=== PATIENT | male | born 1940 | race Caucasian/White ===

== ENCOUNTER 2022-07-25 16:30 | Inpatient (IN) | payer MEDICARE, SELFPAY ==
[2022-07-25] VITALS (7 sets, daily range): BP systolic 112–210; BP diastolic 79–136; PULSE 123–144; RESP 17–26; TEMP 36.3–36.6; O2SAT 90–97; BMI 16.8
--- NOTE | 2022-07-25 16:45 | PC.NURSE ---
Pt arrived at 1605. Audible inspiratory and expiratory wheezes with work of breathing noted. Vitals done hypertension and tachycardia noted. Slight mottling noted on knees. Bloody drainage noted in Depends. IV noted in right forearm
--- NOTE | 2022-07-25 16:51 | P.HP_ITS ---
Providers/Chief Complaint Admitting Physician: Jesus Romeo MD Chief Complaint: Urology consult History of Present Illness Gorge Brown is a 82 year old male who carries history of end-stage COPD, active smoker, intermittent use of 3 L of oxygen at home, noncompliant with oxygen, he still drives, and transferred today to our hospital from [facility] when they noticed urinary retention, 5 times were made to put a Terry catheter which were unsuccessful hence Dr. Almodovar was called who accepted the transfer and asked hospitalist service to admit him. At the time of admission I reviewed his records his ABG was unremarkable, he was on 3 L of oxygen, he was actively wheezing complaining of pain, he was hypertensive tachycardic bladder scan showed more than [address] Bishop was at the bedside We will give him opioids before cystoscopy Patient had a CT scan at the other hospital which revealed hydro nephrosis related to bladder outlet obstruction, L4 compression fracture, COPD, pleural effusion, I called his daughter as well who was very concerned that her father still drives without oxygen I encouraged her to call DMV and report him to confiscate his license Patient is stating that in case of cardiac arrest he does not want chest compressions or intubation Nurse was in the room Daughter wants residential placement and palliative care, patient lives in an apartment Review of Systems Const: Reports: body aches Eyes: Denies: change in vision ENMT: Denies: throat pain Card: Denies: chest pain Resp: Reports: dyspnea GI: Reports: abdominal pain and nausea : Reports: flank pain and difficulty urinating Musc: Denies: neck pain Skin/Breast: Reports: rash and changes in skin color Neuro: Denies: headache(s) Psych: Reports: anxiety Endo: Denies: polyuria Ron/Lymph: Reports: easy bruising All/Imm: Denies: urticaria PFSH Acute PFSH: Medical History BPH (benign prostatic hyperplasia) DNR (do not resuscitate) End stage COPD Hypertension Non-compliant behavior Surgical History No pertinent past surgical history Family History (Updated 07/25/22 @ 17:00 by Jesus Romeo MD) Denies family history of CAD (coronary artery disease) Vitals/I&O/Wt Last Vital Signs O2 Del Method 07/25/22 16:44 Weight last 48 hrs Weight 48.67 kg Physical Exam Narrative: Cachectic malnourished elderly male Currently on 3 L Active wheezing Skin mottling knees No signs of vascular compromise of lower extremities Patient is in distress because of urinary tension Abdomen palpation is painful Active wheezing Right eye mild ptosis Extremely weak lethargic and fatigued EOMI, PERRLA No active focal deficits A&P Assessment and plan (1) COPD exacerbation: (2) Cachectic: (3) Nicotine dependence: (4) Hydronephrosis: (5) Compression fracture of L4 vertebra: (6) Constipation: Plan End-stage COPD Cachectic, malnourished, noncompliant with oxygen No acute Active wheezing Start him on ceftriaxone DuoNeb treatment ABG, also facility was reviewed which is normal I will put him on BiPAP overnight to decrease work of breathing Start IV steroids Urinary retention Bladder outlet obstruction BPH history Dr. Almodovar consulted 5 attempts of catheter placement unsuccessful at outside facility Check UA Cachectic, malnourished End-stage COPD Patient might be a good candidate for hospice/palliative care Daughter is in agreement DNR/DNI Start mechanical soft diet DVT prophylaxis contraindicated because of hematuria noted after 5 Terry catheter placement attempts Active smoker Constipation with L4 fracture Will get PT evaluation He will need residential placement Attestations Medical Necessity Statement*: Anticipating discharge to residential, anticipating discharge within 48 hours Time Spent in Patient Care: 40 Coding Level of Care Code Acute Senior Business Architect for [facility] Fwd Diagnoses COPD exacerbation J44.1 Cachectic R64 Nicotine dependence F17.200 Hydronephrosis N13.30 Compression fracture of L4 vertebra S32.040A Constipation K59.00
--- NOTE | 2022-07-25 17:30 | PM.CONSULT ---
Providers/Reason For Consult Consulting Physician/Specialty*: Urology/Almodovar Reason for Consult*: Urinary retention, inability to place catheter, urethral bleeding Requesting Physician: Dr. Romeo Attending Physician: Jesus Romeo MD Primary Care Provider: Dr. Sanabria History of Present Illness History of Present Illness Gorge Brown is a 82 year old male who I evaluated for the first time today at the request of the hospitalist service after the patient was direct admitted from [facility]. He had been hospitalized apparently for an exacerbation of COPD. His performance status is very low at baseline. While hospitalized for COPD he was discovered to have urinary retention and multiple attempts at passing a catheter via staff were unsuccessful. CT scan was performed that showed a very distended bladder, enlarged prostate, and no obvious traumatic injuries or periurethral fluid collections etc. I was consulted to evaluate and treat related to urinary retention. Patient states that he has had a difficult time with voiding for a long time. He could not really give a timeframe. He has had a Terry catheter in the past when he had a back fracture from a fall. He was not aware that it was difficult. He did report that attempts at passing the catheter were uncomfortable at [facility]. Has had some bleeding per urethra since those attempts. Physical exam revealed no significant bruising. He did have some urethral bleeding but it was not brisk. Perineum was normal. Scrotum was otherwise normal. Recommended cystoscopy to evaluate the urethra and hopefully assist with catheter placement. PROCEDURE BEDSIDE FLEXIBLE CYSTOSCOPY WITH DIFFICULT CATHETER PLACEMENT. Patient was prepped and draped in usual sterile fashion. 2% lidocaine jelly was instilled into the urethra for several minutes. The flexible scope was then advanced into the urethra. There was a large amount of blood in the urethra tract into the very proximal bulbar urethra. There appeared to be although was not 100% clear of false passage directed posteriorly. The scope was aimed to the anterior urethral wall and fluffed advanced proximally. This allowed manipulation beyond the false passage and the scope was advanced into the bladder through the prostate. Bladder was distended. There is not a lot of blood clot in the bladder. A flexible tip guidewire was then advanced through the scope into the bladder and curled into the bladder. The scope was removed and a 16 Telugu chefornak tip catheter was then advanced over the guidewire into the bladder with good function. 10 cc of saline placed in the balloon and the catheter was placed to dependent drainage. He tolerated procedure well without complications. He was turned back over to nursing staff. Final volume of drainage pending. Recommendations: Maintain Terry catheter for now. I expect that if he recovers quickly he should go home with a catheter in place to allow for adequate healing and then repeat cystoscopy in clinic to confirm adequate healing before catheter removed permanently. Review of Systems Const: Reports: change in weight, fatigue and malaise Eyes: Reports: blurry vision and other (Chronic decreased vision.) ENMT: Denies: hoarseness Card: Denies: chest pain or palpitations Resp: Reports: dyspnea and wheezing GI: Reports: abdominal pain : Reports: difficulty urinating, hematuria and genital pain Musc: Reports: limited range of motion; Denies: joint redness Skin/Breast: Denies: rash Neuro: Reports: difficulty walking; Denies: confusion or behavioral changes Psych: Reports: anxiety and depression Endo: Reports: tired all the time Ron/Lymph: Denies: easy bleeding or enlarged lymph nodes All/Imm: Denies: urticaria Medications/Allergies Allergies Allergy/AdvReac Type Severity Reaction Status Date / Time aspirin AdvReac Severe ADR-Gastrointestinal Verified 07/25/22 17:16 Upset PFSH Acute PFSH: Medical History BPH (benign prostatic hyperplasia) DNR (do not resuscitate) End stage COPD Hypertension Non-compliant behavior Surgical History No pertinent past surgical history Family History (Updated 07/25/22 @ 17:00 by Jesus Romeo MD) Denies family history of CAD (coronary artery disease) Vitals/I&O/Wt Last Vital Signs Temp 97.4 F L 07/25/22 16:56 Pulse 123 H 07/25/22 16:56 Resp 20 H 07/25/22 16:56 BP 210/136 07/25/22 16:56 Pulse Ox 97 07/25/22 16:56 O2 Del Method 07/25/22 16:56 Weight last 48 hrs Weight 107 lb 4.8 oz Physical Exam Const: COMMON NORMALS: alert; apparent distress and negative for well nourished (Cachectic) HENMT: COMMON NORMALS: normocephalic and atraumatic HEAD & SCALP: normocephalic and atraumatic Eye: OTHER: Some matting material Neck/C-Spine: OTHER: Good range of motion Lymph: OTHER: No groin lymphadenopathy Chest: OTHER: Normal movements Resp: OTHER: Audible wheezing. No laboring. GI: OTHER: Rectal exam not performed Abdomen is tense in the suprapubic area consistent with bladder distention. No guarding. No other masses. : OTHER: Circumcised phallus: Some mild bloody discharge from the urethra. Scrotum is grossly normal. No bruising. Testicles descended. Normal perineum. Back/Pelvis: OTHER: No CVA tenderness Extremity: NARRATIVE EXTREMITY EXAM: No severe edema Neuro: SENSORIUM/ORIENTATION: Yes alert Psych: COMMON NORMALS: cooperative; negative for speech normal SPEECH: No normal speech OTHER: Depressed Skin: COMMON NORMALS: no jaundice A&P Assessment and plan (1) Acute urinary retention: Estimated [address] scan but I think it will be less final (2) BPH loc w urin obs/LUTS: Reports chronic history of voiding dysfunction decreased force of stream urgency small void (3) Urethral false passage: Secondary to catheter attempt. Able to manipulate beyond the false passage in order to advance into the bladder and then passed a wire followed by catheter placement over the guidewire. Plan 1. Maintain Terry catheter for healing Coding Level of Care Code Acute Reordering Clerk for [facility] Fwd Diagnoses Acute urinary retention R33.8 BPH loc w urin obs/LUTS N40.1 Urethral false passage N36.5
--- NOTE | 2022-07-25 17:40 | PC.NURSE ---
Dr Almodovar here. Insertio of coude catheter with scope used
[2022-07-25] MEDS: lactulose oral liq 20 gm/30 mL UDC PO (19:01)
[2022-07-25] MEDS: amlodipine 10 mg Tablet PO (19:01)
[2022-07-25] MEDS: lidocaine 2% Urojet 20 mL TOPICAL (19:02)
--- NOTE | 2022-07-25 20:10 | PC.NURSE ---
Bedside report completed with JULIA Denton at this time. Shift Note Pt more alert and less lethargic now. HIs color is pink and the mottling on knees gone. Pt is cracking jokes th staff and daughter. He stated he does not have the urge to urinate anymore. He had 675ml of pink tinges urien output, sample sent to lab for UA. RIght forearm IV flushes easily. Pt still has audible wheezing mostly expiratory at this time. Daughter Sisi at bedside. Frequent safety and comfort rounds continue. Orders and/or nursing care completed as indicated. Patient monitored for response to intervention and treatment(s). Education provided includes amlodipine, Lactulose, methylprednisone, perez, stopping smoking and paln of care. Patient and/or loss control representative verbalized understanding and relief with plan of care and medications discussed. . Will continue to monitor. Pt stated he stakes Force Facture an oTC med for his prostrate.
[2022-07-25 20:20] LABS: Glucose Urine UA 1+ (Normal); Protein Urine 3+ (Negative); Urine Appearance Cloudy (CLEAR); Urine Color Red (Yellow); pH Urine 6 (5-7)
[2022-07-25 20:21] LABS: Add Urine Microscopic? YES; Bilirubin Urine Neg (Negative); Blood Urine 3+ (Negative); Ketones Urine 1+ (Negative); Leukocyte Esterase Urine 1+ (Negative); Nitrate Urine Negative (Negative); RBC Urine TOO NUMEROUS TO CNT /hpf (0-2); Urobilinogen Urine Neg (Negative)
[2022-07-25 20:22] LABS: Add Urine Culture? Yes; Bacteria Urine TRACE /hpf; Mucus Urine TRACE /hpf; Squamous Epithelial Cell Urine 0-4 /hpf (0-5)
[2022-07-25 20:45] LABS: Vitamin B12 728 pg/mL (232-1245)
[2022-07-25] MEDS: ipratropium-albuterol 3 mL Neb INHALATION (23:56)
[2022-07-26] VITALS (13 sets, daily range): BP systolic 116–167; BP diastolic 68–102; PULSE 95–120; RESP 16–22; TEMP 36.4–36.6; O2SAT 92–99
[2022-07-26] MEDS: ipratropium-albuterol 3 mL Neb INHALATION ×5 (03:00→20:01)
[2022-07-26 04:49] LABS: Basophils % 0.1 %; Hematocrit 38.4 % (42.0-52.0); Lymphocytes % 9.3 %; Mean Corpuscular HGB Conc 33.9 g/dL (30.0-36.0); Mean Corpuscular Volume 85.7 fl (80-94); Mean Platelet Volume 10.3 fL (7.4-10.4); Monocytes # 0.8 10^3/uL (0.2-0.9); Monocytes % 7.5 %; Neutrophils # 8.94 10^3/uL (1.8-7.7); Neutrophils % 82.5 %; Nucleated Red Blood Cells % 0 %; Platelet Count 249 10^3/cmm (130-400); Red Blood Count 4.48 10^6/uL (4.1-5.3); Red Cell Distribution Width 14.2 % (12.1-15.1); White Blood Count 10.8 10^3/uL (4.0-10.0)
[2022-07-26 05:20] LABS: Anion Gap 13.4 (5-19); Blood Urea Nitrogen 25 mg/dL (8-23); Calcium 8.5 mg/dL (8.5-10.5); Carbon Dioxide 27 mmol/L (22-29); Chloride 100 mmol/L (98-107); Glucose 145 mg/dL (65-115); Magnesium 2.1 mg/dL (1.7-2.3); Osmolality Calculated 289 mOsm/kg (285-295); Phosphorus 3.1 mg/dL (2.5-4.5); Potassium 4.4 mmol/L (3.5-5.1); Sodium 136 mmol/L (136-145)
[2022-07-26] MEDS: lactulose oral liq 20 gm/30 mL UDC PO (06:28)
[2022-07-26] MEDS: amlodipine 10 mg Tablet PO (08:55)
[2022-07-26] MEDS: cefTRIAXone 1,000 MG in sodium chloride 0.9% (plus) 50 ML 100 MG IV (08:55)
[2022-07-26] MEDS: lisinopril 10 mg Tablet PO (08:55)
[2022-07-26] MEDS: sennosides-docusate Tablet 1 TAB PO (08:55)
[2022-07-26] MEDS: lidocaine 5% Patch 1 PATCH TOPICAL ×2 (08:56→20:29)
--- NOTE | 2022-07-26 09:49 | PM.PN ---
Subjective Subjective: The catheter was placed by Dr. Almodovar Low urine output We will start him on normal saline PT evaluation has been requested Patient might opt for care home with palliative care for a few weeks, family is in agreement Daughter is at the bedside Patient is determined and wants to go home however he is not physically fit to return home as she lives alone, I did tell him that he cannot drive with his condition especially when he is not using oxygen on daily basis Vitals/I&O/Wt Last Vital Signs Temp 97.6 F 07/26/22 04:00 Pulse 111 H 07/26/22 09:06 Resp 18 07/26/22 08:58 BP 116/72 07/26/22 04:00 Pulse Ox 94 07/26/22 08:58 O2 Del Method 07/26/22 08:58 O2 Flow Rate 3 07/26/22 08:58 07/25/22 07/26/22 07/26/22 22:59 06:59 14:59 Intake Total 120 / 120 Output Total 675 / 675 275 / 950 Balance -555 / -555 -275 / -830 Weight last 48 hrs Weight 48.67 kg Physical Exam Narrative: Awake and alert Pursed of breathing Currently on 3 L Bilateral breath sound wheezing has improved as compared to yesterday Abdomen soft Terry cath draining concentrated urine Lower extremity no edema Awake and alert Able to answer my questions Urinary Catheter Management: Coude: Cath Placed During This Visit: yes Reason for Continuing Indwelling Catheter: Acute Urinary Retention or Obstruction Urinary Catheter Date of Insertion: 07/25/22 Urinary Catheter Time of Insertion: 17:40 Data : 07/26/22 04:34 07/26/22 04:34 A&P Assessment and plan (1) COPD exacerbation: (2) Cachectic: (3) Nicotine dependence: (4) Hydronephrosis: (5) Constipation: (6) Compression fracture of L4 vertebra: (7) Urethral false passage: (8) BPH loc w urin obs/LUTS: (9) Acute urinary retention: Plan Acute COPD exacerbation Wheezing has improved to some extent Continue IV steroids Continue DuoNeb treatment Nicotine patch today We have recommended physical therapy and care home placement and palliative care Family is in agreement Continue ceftriaxone Hypertensive urgency resolved after Terry catheter was placed Continue antihypertensive regimen L4 compression fracture pain well managed for now Constipation: Patient is stating that he has not used bathroom for his bowel movement yet but he thinks it will happen today, he is not eating very well I will put him on normal saline Cachectic, malnourished Will request dietary consult Moderate protein calorie malnourishment DNR/DNI He will need palliative consult Urine tension history of BPH False passage secondary to multiple times at outside facility Terry catheter placed by Dr. Almodovar Most likely he will be discharged with the Terry catheter and will see Dr. Almodovar outpatient Attestations Medical Necessity Statement*: Continue medical management Time Spent in Patient Care: 30 Coding Level of Care Code Acute Dry Cleaner Hand for g Fwd Diagnoses COPD exacerbation J44.1 Cachectic R64 Nicotine dependence F17.200 Hydronephrosis N13.30 Constipation K59.00 Compression fracture of L4 vertebra S32.040A Urethral false passage N36.5 BPH loc w urin obs/LUTS N40.1 Acute urinary retention R33.8
--- NOTE | 2022-07-26 10:41 | PC.CHAP ---
Pastoral Care Encounter/Spiritual Assessment Type of Contact [] Declined bioinformatics research technician visit [] Patient/Family/Request visit [] Outpatient visit [] Follow-up visit [] Physician referral [] Code/Alert [x] Routine visit [] Staff referral [] Actively dying [] Patient sleeping [] Family support [] [] Out of room [] Palliative care [] [x] Receiving care in room [] Pre-surgical visit [] Trauma [] Long length of stay [] ICU visit [] Other: Relational/Emotional Strength [] Patient feels connected with others/family/visitors/staff [] Distress [] Loneliness/isolation [] Abandonment Spirituality of Patient [] Person of Cheryl [] Attends Bahai of their Cheryl [] Believes in Prayer [] Reads Bible or Sikh materials [] There are Spiritual issues to be addressed Shafting Worker Interventions [] Prayer [] Active listening [] Non-anxious presence [] Spiritual/emotional support [] Crisis/trauma care [] Spiritual counseling [] Bereavement support [] Provided bereavement packet [] Provided Bible/devotional materials [] Provided toy/stuffed animal, coloring book to patient or family member [] Provided Communion [] Anointing/[place] [] Salvation [] Completed spiritual assessment [] Other: Impact on Illness or Injury [] Angry [] Fearful [] Anxious [] Often cries [] Exhaustion [] Unable to work [] Unable to attend spiritism [] Unable to walk/stand [] Unable to read [] Unable to drive [] Unable to eat/drink [] Unable to sleep [] Unable to be with family [] Patient intubated [] Other: Summary Time spent with patient
[2022-07-26] MEDS: nicotine 21 mg Patch 1 PATCH TRANSDERMA (11:03)
[2022-07-26] MEDS: sodium chloride 0.9% 1,000 ML 75 ML IV (11:06)
[2022-07-27] VITALS (13 sets, daily range): BP systolic 129–153; BP diastolic 73–83; PULSE 71–118; RESP 16–20; TEMP 36.4–36.7; O2SAT 93–99
[2022-07-27] MEDS: ipratropium-albuterol 3 mL Neb INHALATION ×5 (00:13→15:05)
[2022-07-27] MEDS: sodium chloride 0.9% 1,000 ML 75 ML IV (01:16)
[2022-07-27 03:42] LABS: Lymphocytes # 0.9 10^3/uL (0.8-4.8); Lymphocytes % 11.1 %; Mean Corpuscular HGB Conc 32.4 g/dL (30.0-36.0); Mean Corpuscular Hemoglobin 28.8 pg (28.0-34.0); Mean Corpuscular Volume 88.9 fl (80-94); Mean Platelet Volume 10.1 fL (7.4-10.4); Monocytes # 0.5 10^3/uL (0.2-0.9); Monocytes % 6.5 %; Neutrophils % 81.9 %; Nucleated Red Blood Cells % 0 %; Platelet Count 229 10^3/cmm (130-400); Red Blood Count 4.16 10^6/uL (4.1-5.3); Red Cell Distribution Width 14.2 % (12.1-15.1); White Blood Count 8.2 10^3/uL (4.0-10.0)
[2022-07-27 04:08] LABS: Anion Gap 11.3 (5-19); Blood Urea Nitrogen 34 mg/dL (8-23); Calcium 8.2 mg/dL (8.5-10.5); Carbon Dioxide 29 mmol/L (22-29); Chloride 103 mmol/L (98-107); Glucose 150 mg/dL (65-115); Osmolality Calculated 296 mOsm/kg (285-295); Potassium 5.3 mmol/L (3.5-5.1); Sodium 138 mmol/L (136-145)
[2022-07-27] MEDS: amlodipine 10 mg Tablet PO (08:43)
[2022-07-27] MEDS: lisinopril 10 mg Tablet PO (08:43)
[2022-07-27] MEDS: nicotine 21 mg Patch 1 PATCH TRANSDERMA (08:43)
[2022-07-27] MEDS: cefTRIAXone 1,000 MG in sodium chloride 0.9% (plus) 50 ML 30 MG IV (08:44)
--- NOTE | 2022-07-27 09:28 | P.PN_ITS ---
Subjective Subjective: Patient wants to go to [facility] for rehab Currently on 3 L nasal cannula Patient is stating that because of his bedside alarm beeping he could not sleep very well Number of bowel movements to Adequate urine output Discontinue IV fluids Vitals/I&O/Wt Last Vital Signs Temp 97.9 F 07/27/22 07:32 Pulse 118 H 07/27/22 07:53 Resp 18 07/27/22 07:53 BP 150/83 07/27/22 07:32 Pulse Ox 94 07/27/22 07:53 O2 Del Method 07/27/22 07:53 O2 Flow Rate 3 07/27/22 08:00 07/26/22 07/27/22 07/27/22 22:59 06:59 14:59 Intake Total 300 / 586 1000 / 1586 Output Total 450 / 450 600 / 1050 Balance -150 / 136 400 / 536 Weight last 48 hrs Weight 48.67 kg Physical Exam Narrative: Cachectic malnourished elderly male Currently on 3 L Wheezing improved Conversational dyspnea present Pursed lip breathing present Cachectic malnourished Abdomen soft Eating breakfast Nonfocal neuro exam Urinary Catheter Management: Coude: Cath Placed During This Visit: yes Reason for Continuing Indwelling Catheter: Acute Urinary Retention or Obstruction Urinary Catheter Date of Insertion: 07/25/22 Urinary Catheter Time of Insertion: 17:40 Data : 07/27/22 03:10 07/27/22 03:10 A&P Assessment and plan (1) COPD exacerbation: (2) Cachectic: (3) Nicotine dependence: (4) Hydronephrosis: (5) Constipation: (6) Compression fracture of L4 vertebra: (7) Urethral false passage: (8) BPH loc w urin obs/LUTS: (9) Acute urinary retention: Plan Acute exacerbation of underlying end-stage COPD Active smoker Currently on 3 L I have recommended palliative care patient is DNR/DNI Pursed lip breathing Cachectic and malnourished He is agreeable to go to residential for short-term In case he changes his mind and want to pursue palliative care at a residential he can do so, family is aware Daughter updated BPH, urine retention, adequate urine output Hematuria improved Discontinue IV fluids, discontinue ceftriaxone Because of end-stage COPD and urine retention I have kept him on antibiotics however there is no source of infection I am treating him empirically with levofloxacin for now DNR/DNI Awaiting placement to [place] for urethral passage and Terry catheter placement he will follow-up with Dr. Almodovar L4 compression fracture management with opioids Attestations Medical Necessity Statement*: Continue medical management Time Spent in Patient Care: 20 Coding Level of Care Code Acute Field Crop I Farmworker for [employer] Fwd Diagnoses COPD exacerbation J44.1 Cachectic R64 Nicotine dependence F17.200 Hydronephrosis N13.30 Constipation K59.00 Compression fracture of L4 vertebra S32.040A Urethral false passage N36.5 BPH loc w urin obs/LUTS N40.1 Acute urinary retention R33.8
--- NOTE | 2022-07-27 09:32 | ECG_ITS ---
[facility] Test Date: 2022-07-27 Pat Name: Gorge Brown Department: Room: 253 Gender: Male Certified Forklift Operator: : [id number] Requested By: Jesus Romeo Order Number: [id number] Bernadette MD: Navid Molina M.D. Measurements Intervals [place] Rate: 105 P: 73 [place]: 107 QRS: 82 QRSD: 126 T: 60 QT: 345 QTc: 457 Interpretive Statements SINUS TACHYCARDIA WITH SHORT [place] INTERVAL POSSIBLE LEFT ATRIAL ENLARGEMENT [-0.1mV P-WAVE IN V1/V2] POSSIBLE RIGHT VENTRICULAR CONDUCTION DELAY [RSR (QR) IN V1/V2] MODERATE ST DEPRESSION [0.05+ mV ST DEPRESSION] No previous ECG available for comparison Electronically Signed On 07-28-2022 0:24:12 CDT by Navid Molina M.D. [email or web address]
[2022-07-27 10:29] LABS: D Dimer 3.18 ug/mIFEU (0-0.59)
--- NOTE | 2022-07-27 11:06 | PC.CHAP ---
Pastoral Care Encounter/Spiritual Assessment Type of Contact [] Declined education and development manager visit [] Patient/Family/Request visit [] Outpatient visit [] Follow-up visit [] Physician referral [] Code/Alert [x] Routine visit [] Staff referral [] Actively dying [] Patient sleeping [] Family support [] [] Out of room [] Palliative care [] [] Receiving care in room [] Pre-surgical visit [] Trauma [] Long length of stay [] ICU visit [] Other: Relational/Emotional Strength [x] Patient feels connected with others/family/visitors/staff [] Distress [] Loneliness/isolation [] Abandonment Spirituality of Patient [x] Person of Cheryl [] Attends Mormonism of their Cheryl [x] Believes in Prayer [] Reads Bible or Buddhism materials [] There are Spiritual issues to be addressed Blood Or Blood Bank Technician Interventions [x] Prayer [x] Active listening [x] Non-anxious presence [] Spiritual/emotional support [] Crisis/trauma care [] Spiritual counseling [] Bereavement support [] Provided bereavement packet [] Provided Bible/devotional materials [] Provided toy/stuffed animal, coloring book to patient or family member [] Provided Communion [] Anointing/[place] [] Salvation [x] Completed spiritual assessment [] Other: Impact on Illness or Injury [] Angry [] Fearful [] Anxious [] Often cries [] Exhaustion [] Unable to work [] Unable to attend episcopalian [] Unable to walk/stand [] Unable to read [] Unable to drive [] Unable to eat/drink [] Unable to sleep [] Unable to be with family [] Patient intubated [] Other: Summary patient doing better today Time spent with patient 10 min
--- NOTE | 2022-07-27 12:07 | P.DS_ITS ---
Discharge Providers Date of Admission: 07/26/22 18:31 Date of Discharge: July 27, 2022 Attending Provider at Admission: Jesus Romeo MD Attending Provider at Discharge: Jesus Romeo MD Diagnoses at Discharge Discharge Diagnosis (1) COPD exacerbation: Status: Acute (2) Cachectic: Status: Acute (3) Nicotine dependence: Status: Acute (4) Hydronephrosis: Status: Acute (5) Constipation: Status: Acute (6) Compression fracture of L4 vertebra: Status: Acute (7) Urethral false passage: Status: Acute (8) BPH loc w urin obs/LUTS: Status: Acute (9) Acute urinary retention: Status: Acute Reason for Visit Reason for Visit: Urology consult Hospital Course Hospital Course 82-year-old male who was transferred from [facility] for his inability to void urine spontaneously, nursing staff could not place a Terry catheter after 5 attempts hence he was transferred to our facility after Dr. Almodovar excepted him, patient has end-stage COPD, he is an active smoker, noncompliant, lives alone, pursed lip breathing Cut short of breath easily on conversation and any mild exertion, Dr. Almodovar was able to put a Terry catheter over the guidewire with cystoscopy, hematuria resolved, no sign of UTI, he remained afebrile, he was given empirical coverage with antibiotics however no signs of infection identified. Patient was given option to go to correction on palliative care or go home on hospice he has opted for home with hospice He has end-stage COPD, losing weight, cachectic and malnourished, active smoker, not an ideal candidate for pulmonary rehab He also has severe constipation, compression fracture I will give him opioids, bowel regimen and albuterol Home health with hospice services Physical Exam Narrative: Cachectic malnourished elderly male Currently on 3 L Wheezing improved Conversational dyspnea present Pursed lip breathing present Cachectic malnourished Abdomen soft Eating breakfast Nonfocal neuro exam Urinary Catheter Management: Coude: Cath Placed During This Visit: yes Reason for Continuing Indwelling Catheter: Acute Urinary Retention or Obstruction Urinary Catheter Date of Insertion: 07/25/22 Urinary Catheter Time of Insertion: 17:40 Discharge Data Studies Completed and Pending Laboratory Results WBC 8.2 10^3/uL (4.0-10.0) 07/27/22 03:10 RBC 4.16 10^6/uL (4.1-5.3) 07/27/22 03:10 Hgb 12.0 g/dL (11.7-16.6) 07/27/22 03:10 Hct 37.0 % (42.0-52.0) L 07/27/22 03:10 MCV 88.9 fl (80-94) 07/27/22 03:10 MCH 28.8 pg (28.0-34.0) 07/27/22 03:10 MCHC 32.4 g/dL (30.0-36.0) 07/27/22 03:10 RDW 14.2 % (12.1-15.1) 07/27/22 03:10 Plt Count 229 10^3/cmm (130-400) 07/27/22 03:10 MPV 10.1 fL (7.4-10.4) 07/27/22 03:10 Neut % (Auto) 81.9 % 07/27/22 03:10 Lymph % (Auto) 11.1 % 07/27/22 03:10 Sac % (Auto) 6.5 % 07/27/22 03:10 Eos % (Auto) 0.0 % 07/27/22 03:10 Baso % (Auto) 0.0 % 07/27/22 03:10 Neut # (Auto) 6.70 10^3/uL (1.8-7.7) 07/27/22 03:10 Lymph # (Auto) 0.9 10^3/uL (0.8-4.8) 07/27/22 03:10 Sac # (Auto) 0.5 10^3/uL (0.2-0.9) 07/27/22 03:10 Eos # (Auto) 0.0 10^3/uL (0.0-0.8) 07/27/22 03:10 Baso # (Auto) 0.0 10^3/uL (0.0-0.1) 07/27/22 03:10 Nucleated RBC % (auto) 0 % 07/27/22 03:10 Nucleated RBCs # 0.0 /100WBC 07/27/22 03:10 D-Dimer 3.18 ug/mIFEU (0-0.59) H 07/27/22 10:05 Sodium 138 mmol/L (136-145) 07/27/22 03:10 Potassium 5.3 mmol/L (3.5-5.1) H 07/27/22 03:10 Chloride 103 mmol/L (98-107) 07/27/22 03:10 Carbon Dioxide 29 mmol/L (22-29) 07/27/22 03:10 Anion Gap 11.3 (5-19) 07/27/22 03:10 BUN 34 mg/dL (8-23) H 07/27/22 03:10 Creatinine 0.5 mg/dL (0.7-1.2) L 07/27/22 03:10 GFR Calculation Not Reportable 07/27/22 03:10 Glucose 150 mg/dL (65-115) H 07/27/22 03:10 Calculated Osmolality 296 mOsm/kg (285-295) H 07/27/22 03:10 Calcium 8.2 mg/dL (8.5-10.5) L 07/27/22 03:10 Phosphorus 3.1 mg/dL (2.5-4.5) 07/26/22 04:34 Magnesium 2.1 mg/dL (1.7-2.3) 07/26/22 04:34 Vitamin B12 728 pg/mL (232-1245) 07/25/22 19:28 Urine Color Red (Yellow) 07/25/22 18:47 Urine Appearance Cloudy (CLEAR) A 07/25/22 18:47 Urine pH 6 (5-7) 07/25/22 18:47 Ur Specific [place] 1.020 (1.005-1.030) 07/25/22 18:47 Urine Protein 3+ (Negative) H 07/25/22 18:47 Urine Glucose (UA) 1+ (Normal) H 07/25/22 18:47 Urine Ketones 1+ (Negative) H 07/25/22 18:47 Urine Blood 3+ (Negative) H 07/25/22 18:47 Urine Nitrate Negative (Negative) 07/25/22 18:47 Urine Bilirubin Neg (Negative) 07/25/22 18:47 Urine Urobilinogen Neg mg/dL (Negative) 07/25/22 18:47 Ur Leukocyte Esterase 1+ (Negative) H 07/25/22 18:47 Urine RBC Too numerous to cnt /hpf (0-2) H 07/25/22 18:47 Urine WBC 5-10 /hpf (0-5) H 07/25/22 18:47 Ur Squamous Epith Cells 0-4 /hpf (0-5) H 07/25/22 18:47 Amorphous Sediment Not Reportable 07/25/22 18:47 Urine Bacteria Trace /hpf (NONE) 07/25/22 18:47 Urine Mucus Trace /hpf 07/25/22 18:47 Vitals Last Vital Signs Temp 97.8 F 07/27/22 11:20 Pulse 99 07/27/22 11:23 Resp 20 H 07/27/22 11:21 BP 132/73 07/27/22 11:20 Pulse Ox 96 07/27/22 11:21 O2 Del Method 07/27/22 11:21 O2 Flow Rate 3 07/27/22 11:21 Discharge Plan Discharge Patient Disposition: Hospice - Home Condition: Fair Prescriptions: New morphine 15 mg Tablet 15 mg PO Q6H PRN (Reason: Moderate Pain) Qty: 10 0RF sennosides-docusate sodium [Stool Softener-Laxative] 8.6-50 mg Tablet 1 tab PO DAILY Qty: 30 0RF amlodipine 10 mg Tablet 10 mg PO DAILY Qty: 60 0RF lisinopril 10 mg Tablet 10 mg PO DAILY Qty: 60 0RF prednisone 20 mg Tablet 40 mg PO DAILY Qty: 5 0RF lactulose 20 gram/30 mL Solution 20 g PO DAILY PRN (Reason: Constipation) Qty: 500 1RF albuterol sulfate 90 mcg/actuation HFA aerosol inhaler 1 inh inhalation Q6H PRN (Reason: shortness of breath or wheezing) Qty: 8.5 2RF Continued ipratropium-albuterol 0.5 mg-3 mg(2.5 mg base)/3 mL solution for nebulization 3 ml INHALATION QID albuterol sulfate 90 mcg/actuation Hfa Aerosol Inhaler 2 puff INHALATION QID PRN (Reason: Shortness Of Breath Or Wheezing) Discontinued ferrous sulfate 27 mg iron Tablet 27 mg PO DAILY Men's 50 Plus Multivitamin 400-20-370 mcg Tablet 1 tab PO DAILY Ocuvite Adult 50 Plus 250 mg (90 mg-160 mg) Capsule 1 cap PO DAILY Force Factor Prostate 1 cap PO QPM Discharge Orders: Discharge Order (Routine); Ordered 07/27/22 Ordered By: Jesus Romeo Referrals: Loki Almodovar MD [Physician] - 1 month Discharge Attestations Time Spent in Discharge Care*: less than 30 min Quality Metrics Clinical Quality Measures [ No reported AMI, CVA or VTE this stay] Coding Level of Care Code Acute Chg FW DC note Diagnoses COPD exacerbation J44.1 Cachectic R64 Nicotine dependence F17.200 Hydronephrosis N13.30 Constipation K59.00 Compression fracture of L4 vertebra S32.040A Urethral false passage N36.5 BPH loc w urin obs/LUTS N40.1 Acute urinary retention R33.8
== END 2022-07-27 19:02 | disposition home health service (06) | DRG 191 ==
PROVIDERS: Admitting Provider Internal Medicine; Visit Provider Internal Medicine
DX: J44.1 Chronic obstructive pulmonary disease with (acute) exacerbation (principal); E44.0 Moderate protein-calorie malnutrition; J90 Pleural effusion, not elsewhere classified; N13.1 Hydronephrosis with ureteral stricture, not elsewhere classified; N13.8 Other obstructive and reflux uropathy; Z68.1 Body mass index [BMI] 19.9 or less, adult; N40.1 Benign prostatic hyperplasia with lower urinary tract symptoms; R33.8 Other retention of urine; R39.12 Poor urinary stream; F17.200 Nicotine dependence, unspecified, uncomplicated; Z99.81 Dependence on supplemental oxygen; Z91.199 Patient's noncompliance with other medical treatment and regimen due to unspecified reason; I10 Essential (primary) hypertension; Z66 Do not resuscitate; K59.00 Constipation, unspecified; Z79.51 Long term (current) use of inhaled steroids; N36.5 Urethral false passage; M48.56XD Collapsed vertebra, not elsewhere classified, lumbar region, subsequent encounter for fracture with routine healing
CPT/HCPCS: 36415; 51798; 80048; 81001; 82607; 83735; 84100; 85025; 85378; 87086; 93005; 94640; 97116; 97161; G0378; G0379; J0696; J2920; J7030

== ENCOUNTER → 2022-08-24 08:32 | Outpatient (BNVA) | payer MEDICARE, OTHER, SELFPAY | PROVIDERS: Visit Provider Urology | DX: N40.1 Benign prostatic hyperplasia with lower urinary tract symptoms (principal); N36.5 Urethral false passage; R33.9 Retention of urine, unspecified | CPT/HCPCS: 52000; 99214 ==

== ENCOUNTER → 2022-09-22 13:03 | Outpatient (BNVA) | payer MEDICARE, OTHER, SELFPAY | PROVIDERS: Visit Provider Urology | DX: N40.1 Benign prostatic hyperplasia with lower urinary tract symptoms (principal); R33.9 Retention of urine, unspecified; N36.5 Urethral false passage | CPT/HCPCS: 52000; 99213 ==

== ENCOUNTER → 2022-10-15 10:36 | Outpatient (BNVA) | payer MEDICARE, OTHER, SELFPAY | PROVIDERS: Visit Provider Urology | DX: R33.9 Retention of urine, unspecified (principal); N39.9 Disorder of urinary system, unspecified | CPT/HCPCS: 51702 ==